=== PATIENT | female | born 1945 | race Caucasian/White ===

== ENCOUNTER 2016-11-28 09:03 | Observation (INO) | payer MEDICARE, OTHER ==
[~2016-11-28] VITALS: Ht 170.2 cm; Wt 81.6 kg
[~2016-11-28 09:03] MED LIST: ATENOLOL100 MG PO; CARDIZEM GENERI30 MG PO; CEFDINIR 300MG300 MG PO; DOCUSATE SODIU250 M1 PO; HYDROCODONE/ACE1 TA5 PO; KLOR-CON M2020 MEQ PO; LIPITOR40 M1 PO; PAROXETINE40 MG PO; PERMETHRIN5% TP; VITAMIN D3 COM1 EACH PO; XARELTO20 MG PO
[2016-11-28 09:06] VITALS: BP 128/73
--- NOTE | 2016-11-28 09:07 | Emergency Room Report ---
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 Clinical Suspician of Infection? Mental Status: Sepsis Risk: Have you (or family members/close friends) recently traveled outside the [place]? If Yes, where/when: Have you had exposure to infectious disease within the past month? TB? Other? Specify: Source patient, RN notes reviewed Exam Limitations no limitations Comment Brought to the ED by the [facility] from home with history that she may have had a stroke with altered speech that started about 7AM and on the way to the hospital, she regained her speech. She had no LOC and she reports that she has had a stroke in the past, has a history of Chronic AFib and is on xarelto. She is alert and oriented on arrival in the ED and has no arm drift. Her speech is a little slurred but she has drooping of the left side of her mouth and she reports it has been that way since her last CVA. She had no LOC and no incontinence of urine or stool and no seizure activity Cardiac Chest Pain Chest pain indicative of cardiac No ALLERGIES Coded Allergies: ofloxacin (UNKNOWN 11/28/16) Home Medications Active Scripts Diltiazem Hcl (Cardizem Generic 30MG Tab) 30 MG PO Q8 30 Days Prov: 01/03/14 Potassium Chloride (Klor-Con M20) 20 MEQ PO DAILY 30 Days Prov: 01/03/14 Atorvastatin Calcium (Lipitor 40MG) 40 MG PO QHS #30 TAB Ref 5 Prov: 08/28/16 Reported Medications Atenolol (Atenolol) 100 MG PO QHS #30 PAROXETINE HCL (Paroxetine) 40 MG PO QHS #30 Rivaroxaban (Xarelto) 20 MG PO DAILY History Medical History General CAD? No Angina: No PA: No Hypertension? Yes Hyperlipidemia? No CHF? Yes DVT? No PE? No COPD? Yes Asthma? No Anemia? No GERD? No Gastric ulcers? No GI Bleed? No Hernia? No Thyroid Problems? No Hypothyroidism? No CVA? Yes Seizures? No Diabetes? No Renal Insuffiency? No End Stage Renal Disease? No UTI? Yes Stones? No BPH? No GB Disease: No Nephritic Syndrome? No Asplenia? No Hepatitis? No Sickle Cell Disease? No Arthritis? No Migraines? No Cataracts? No Glaucoma? No MRSA? No HIV? No TB? No Anxiety? Yes Depression? Yes Cancer? No More? Yes Additional hx: AFIB,TIA, MILD COGNITIVE IMPAIRMENT Immunization Hx DT/Tetanus > 10 Years Ago Flu 2016-17FSN Pneumonia Received In Past Surgical Hx Previous Surgery?Y HYSTERECTOMY Breast Biopsy CHOLECYSTECTOMY ORIF L ANKLE Family History Family Hx Diabetes Yes CAD No Hypertension No Hyperlipidemia Yes Cancer No TB No Social History Smoking Hx Packs/day N/A Alcohol Alcohol: No Review of Systems All Other Systems Reviewed and Negative Constitutional see HPI Musculoskeletal see HPI Psychiatric/Neurological see HPI Physical Exam Vital Signs Vital Signs Date Time Temp Pulse Resp B/P Pulse O2 O2 Flow FiO2 Ox Delivery Rate 11/28 0906 98.3 78 18 128/73 96 General Appearance no apparent distress, mild drooping of left side of mouth Neck normal inspection, no bruits heard by me Respiratory Status No: respiratory distress. Lung Sounds bilateral: decreased breath sounds. Cardiovascular irregularly irregular Neurologic alert, oriented x 3, mild slurred speech and drooping of he left side of mouth Stroke Score/Tx Stroke Evaluation Initial symptoms indicative of possible stroke? Yes NIH STROKE SCORE NIH STROKE SCORE Response Value 1a.Level of Consciousness ALERT 0 1b.LOC Questions ANSWERS BOTH CORRECTLY 0 1c.LOC Commands OBEYS BOTH CORRECTLY 0 2 .Best Gaze NORMAL 0 3 .Visual NO VISUAL LOSS 0 4 .Facial Palsy PARTIAL 2 5a.Motor Arm Left NO DRIFT 0 5b.Motor Arm Right NO DRIFT 0 6a.Motor Leg Left NO DRIFT 0 6b.Motor Leg Right NO DRIFT 0 7 .Limb Ataxia ABSENT 0 8 .Sensory NORMAL 0 9 .Best Language NO APHASIA 0 10.Dysarthria MILD TO MOD DYSARTHRIA 1 ED.NIH11 NO NEGLECT 0 Total 3 Treatment Consideration t-PA ordered? No Medical Decision Making LABS/Meds/Orders Pt receiving controlled substance in ED? No Results/Orders Laboratory Tests 11/28/16 1028: Urine Color YELLOW, Urine Appearance CLEAR, Urine pH 6.5, Ur Specific [place] 1.015, Urine Protein NEGATIVE, Urine Ketones NEGATIVE, Urine Blood 2+ H, Urine Nitrate POSITIVE H, Urine Bilirubin NEGATIVE, Urine Urobilinogen 0.2, Ur Leukocyte Esterase 2+ H, Urine RBC 3-5, Urine WBC 20-50, Ur Squamous Epith Cells 3-5, Urine Bacteria 3+, Urine Glucose NEGATIVE 11/28/16924: Sodium 145, Potassium 4.1, Chloride 110 H, Carbon Dioxide 26, BUN 15, Creatinine 1.0, Estimated Creat Clear 43 L, Estimated GFR (MDRD) 54 L, Glucose 149 H, Calcium 8.2 L, Total Bilirubin 0.6, AST 22, ALT 22, Alkaline Phosphatase 170 H, Creatine Kinase 55, CK-MB (CK-2) Rel Index 1.8, CK and CKMB Interp 1.0, Troponin I 0.02, Total Protein 6.5, Albumin 3.0 L, Globulin 3.5 H, Albumin/Globulin Ratio 0.9 L, PT 15.9 H, INR 1.49 H, APTT 33.4, WBC 16.7 H, RBC 4.21, Hgb 14.3, Hct 43.2, MCV 102.5 H, RDW 16.4, Plt Count 248, MPV 10.7 H , Gran % 74.2, Gran # 12.4 H, Total Counted 100, Lymphocytes % 16.8, Monocytes % 6.7, Eosinophils % 1.7, Basophils % 0.5, Neutrophils 73, Lymphocytes (Manual) 16, Lymphocytes # 2.8, Monocytes (Manual) 8, Monocytes # 1.1 H, Eosinophils # 0.3, Eosinophils # (Manual) 3, Basophils # 0.1, Platelet Estimate NORMAL, Target Cells 2+, [place] Cells 1+, PUBS MCHC 33.0, MCH 33.9 H Current Medication Orders Sig/Krystina Start time Last Medication Dose Route Stop Time Status Admin Ceftriaxone Sodium 1 GM ONCE ONE 11/28 1115 AC Sodium Chloride 50 ML IV 11/28 1144 Sodium Chloride 10 ML PRN PRN 11/28 0915 AC IV 11/29 0913 Orders Procedure Date/time Status DIET-NOTHING BY MOUTH 11/28 L Active CULTURE, URINE 11/28 1028 Active LACTIC ACID 11/28 1002 Active DIFFERENTIAL-WBC 11/28 0925 Complete PROTIME/PARTIAL PROTIME 11/28 0922 Complete URINALYSIS/COMPLETE 11/28 0914 Complete ELECTROCARDIOGRAM REQUEST 11/[address] HEAD REQ 11/28 912 Complete IV SALINE LOCK 11/28 912 Active CULTURE, BLOOD 11/28 912 Active CBC WITH AUTO DIFF 11/28 912 Complete CARDIAC ENZYMES 11/28 912 Complete CHEM 12 PROFILE 11/28 912 Complete 12 LEAD EKG-ROSY (INITIAL) 11/28 UNK Active Departure Departure Time of Disposition 1116 Disposition Still a Patient Clinical Impression Primary Impression: TIA (transient ischemic attack) Qualifiers: Transient cerebral ischemia type: unspecified Qualified Code: G45.9 - Transient cerebral ischemic attack, unspecified Secondary Impressions: UTI (urinary tract infection) Qualifiers: Urinary tract infection type: acute cystitis Hematuria presence: without hematuria Qualified Code: N30.00 - Acute cystitis without hematuria Condition STABLE Referrals Donovan AMIN,Dagmar Savage (Family) Additional Instructions OBS to Dr. Man Discharge Counseling Counseled pt/family regarding diagnosis, test results, medications/RX ED Critical Care Critical Care No If Critical Care minutes are documented, the time involved in the performance of seperately reportable procedures was not counted toward critical care time documented. I directly delivered medical care to this critically ill and/or injured patient. Timely evaluation and treatment was necessary to address the significant organ system(s) dysfunction present in this patient. at 1117
[2016-11-28 09:41] LABS: HEMOGLOBIN 14.3 g/dL (12.2-16.2); LYMPH # 2.8 K/mm3 (0.7-4.5); LYMPH % 16.8 % (10-50.0)
[2016-11-28 10:12] LABS: NEUTROPHILS 73 % (42-76)
[2016-11-28 10:35] LABS: URINE BILIRUBIN - DIPSTICK NEGATIVE (NEG); URINE BLOOD 2+ (NEG)
--- NOTE | 2016-11-28 10:50 | RADIOLOGY REPORT PS360 ---
CT HEAD W/O CONTRAST HISTORY: Altered mental status, confusion, altered level of consciousness AMS ORDERING PHYSICIAN: Manda Díaz MD PATIENT AGE: 71 years COMPARISON: 08/27/2016 TECHNIQUE: Axial images obtained without contrast. Brain and bone windows reviewed. FINDINGS: No midline shift, mass effect, intracranial hemorrhage, hydrocephalus, or extra-axial fluid collection is evident. There is atrophy with hypoattenuation in the periventricular and subcortical region consistent with chronic ischemic change from microvascular disease. There is a 1 similar area of decreased attenuation within the medial aspect of the left basal ganglia consistent with a chronic lacunar infarction not readily apparent on 08/27/2016 but probably not acute. The calvarium has an unremarkable appearance. No mastoid effusion. The visualized paranasal sinuses are unremarkable. IMPRESSION: 1. No acute intracranial hemorrhage. 2. Chronic ischemic changes. 3. A new left lacunar infarction of the basal ganglia is noted compared to 08/27/2016. This however is not appear acute.. 4. There is no evidence of intracranial hemorrhage, focal mass, or acute territorial infarction. A negative CT does not exclude an acute CVA. A follow-up head CT or MRI is recommended if neurological symptoms persist
--- NOTE | 2016-11-28 10:50 | RADIOLOGY REPORT PS360 ---
CHEST-AP VIEW ONLY HISTORY: TIA ORDERING PHYSICIAN: Manda Díaz MD PATIENT AGE: 71 years COMPARISON: 08/25/2016 FINDINGS: The cardiomediastinal silhouette and pulmonary vascularity are within normal limits. The lungs are clear without infiltrates, suspicious nodules, or pleural effusions. No acute bony abnormalities. IMPRESSION: Negative chest, no acute finding
[2016-11-28 12:05] VITALS: BP 128/73
[2016-11-28] MEDS ORDERED: LEVOTHYROXIN0.025 M1 PO (12:12)
[2016-11-28 12:32] VITALS: BP 138/52
[2016-11-28 15:41] VITALS: BP 153/81
--- NOTE | 2016-11-28 16:32 | HISTORY AND PHYSICAL REPORT ---
History and Physical (FCA) Date of admission: 11/28/16 Chief complaint: Weakness History: History of Present Illness: Ms. Monzon is a 71yo white female who just recently suffered a CVA last year on 08/25/16. She She was discharged to [place] and was then transferred to [facility] for rehab. She had been discharged from there in October 2016. She was doing well until this am around 7. She was brought to the ED by the [facility] from home with history that she may have had a stroke with altered speech and weakness that started about 7AM. On the way to the hospital, she regained her speech and her weakness resolved. She has a history of Chronic AFib and is on xarelto. She was alert and oriented on arrival to the ED and had no arm drift. Her speech was a little slurred and she had drooping of the left side of her mouth but she reported it had been that way since her last CVA. She had no LOC and no incontinence of urine or stool. She had no seizure activity but she did manage to bite her tongue. Past Medical History: Medical History: CAD? No Angina: No NE: No Hypertension? Yes Hyperlipidemia? No CHF? Yes DVT? No PE? No COPD? Yes Asthma? No Anemia? No GERD? No Gastric ulcers? No GI Bleed? No Hernia? No Thyroid Problems? No Hypothyroidism? Yes CVA? Yes Seizures? No Diabetes? No Renal Insuffiency? No UTI? Yes Stones? No BPH? No GB Disease: No Nephritic Syndrome? No Asplenia? No Hepatitis? No Sickle Cell Disease? No Arthritis? No Migraines? No Cataracts? No Glaucoma? No MRSA? No HIV? No TB? No Anxiety? Yes Depression? Yes Cancer? No More? Yes Additional hx: 1. AFIB 2. TIA 3. MILD COGNITIVE IMPAIRMENT Surgical history: Previous Surgery?Y 1. HYSTERECTOMY 2. BREAST BX 3. CHOLECYSTECTOMY 4. ORIF L ANKLE Medications: Active Scripts Diltiazem Hcl (Cardizem Generic 30MG Tab) 30 MG PO Q8 30 Days Prov: 01/03/14 Potassium Chloride (Klor-Con M20) 20 MEQ PO DAILY 30 Days Prov: 01/03/14 Atorvastatin Calcium (Lipitor 40MG) 40 MG PO QHS #30 TAB Ref 5 Prov: 08/28/16 Reported Medications Atenolol (Atenolol) 100 MG PO QHS #30 PAROXETINE HCL (Paroxetine) 40 MG PO QHS #30 Rivaroxaban (Xarelto) 20 MG PO DAILY Levothyroxine Sodium (Levothyroxine 0.025MG) 0.025 MG PO DAILY #30 Allergies: Coded Allergies: ofloxacin (UNKNOWN 11/28/16) Family History: Family history: Postive for: DM. Social History: Smoking Hx Tobacco: No Smoker: Never Smoker Type: N/A Packs/day: N/A Are you exposed to second hand No Alcohol: Alcohol: No Hx of Drug Use: Drug Use? No Review of Systems: Constitutional Positive for: weak. No: fatigue, lethargy, malaise. ENT Positive for: nasal congestion. No: sore throat. Cardiovascular No: chest pain, edema, palpitations. Respiratory No: shortness of air, productive cough (sputum), wheezing. GI No: abdominal pain, diarrhea, nausea, vomitting. (female) No: frequency, hematuria. Neurological Positive for: weakness. No: dizziness, headache, seizure, syncope. Musculoskeletal No: extremity pain, joint pain, myalgias. Physical Exam: Vital signs: 1ST Vital Signs Result Date Time Pulse Ox 96 11/28 09 B/P 128/73 11/28 09 Temp 98.3 11/28 0906 Pulse 78 11/28 0906 Resp 18 11/28 0906 O2 Delivery ROOM AIR 11/28 1232 Exam: General appearance: alert, awake, no acute distress Eyes: EOM's w/normal ROM, PERRLA ENT: mucous membranes moist, nose normal, pharynx normal, tympanic membranes normal Neck: non-tender, full range of motion, supple Cardiovascular: regular rate & rhythm Respiratory: clear to auscultation ABD: non-distended, normal bowel sounds, no rebound, soft, no tenderness, no guarding Extremities: no peripheral edema Musculoskeletal: equal muscle strength, motor intact, sensation intact Skin: normal color Neuro: disease management nurse II-XII nml as tested, normal mood/affect, oriented, speech clear Lab data: Labs: Laboratory Tests 11/28/16 1028: Urine Color YELLOW, Urine Appearance CLEAR, Urine pH 6.5, Ur Specific [place] 1.015, Urine Protein NEGATIVE, Urine Ketones NEGATIVE, Urine Blood 2+ H, Urine Nitrate POSITIVE H, Urine Bilirubin NEGATIVE, Urine Urobilinogen 0.2, Ur Leukocyte Esterase 2+ H, Urine RBC 3-5, Urine WBC 20-50, Ur Squamous Epith Cells 3-5, Urine Bacteria 3+, Urine Glucose NEGATIVE 11/28/16 0925: Sodium 145, Potassium 4.1, Chloride 110 H, Carbon Dioxide 26, BUN 15, Creatinine 1.0, Estimated Creat Clear 43 L, Estimated GFR (MDRD) 54 L, Glucose 149 H, Calcium 8.2 L, Total Bilirubin 0.6, AST 22, ALT 22, Alkaline Phosphatase 170 H, Creatine Kinase 55, CK-MB (CK-2) Rel Index 1.8, CK and CKMB Interp 1.0, Troponin I 0.02, Total Protein 6.5, Albumin 3.0 L, Globulin 3.5 H, Albumin/Globulin Ratio 0.9 L, PT 15.9 H, INR 1.49 H, APTT 33.4, WBC 16.7 H, RBC 4.21, Hgb 14.3, Hct 43.2, MCV 102.5 H, RDW 16.4, Plt Count 248, MPV 10.7 H , Gran % 74.2, Gran # 12.4 H, Total Counted 100, Lymphocytes % 16.8, Monocytes % 6.7, Eosinophils % 1.7, Basophils % 0.5, Neutrophils 73, Lymphocytes (Manual) 16, Lymphocytes # 2.8, Monocytes (Manual) 8, Monocytes # 1.1 H, Eosinophils # 0.3, Eosinophils # (Manual) 3, Basophils # 0.1, Platelet Estimate NORMAL, Target Cells 2+, [place] Cells 1+, PUBS MCHC 33.0, MCH 33.9 H Microbiology 11/28 1028 URINE CC: Urine Culture - RECD 11/28 912 BLOOD: Anaerobic Blood Culture - CAN Cancelled: @[facility] TALKED TO ER AND THEY STATED LABS WERE NOT NEEDED 11/28 912 BLOOD: Aerobic Blood Culture - CAN Cancelled: @[facility] TALKED TO ER AND THEY STATED LABS WERE NOT NEEDED 11/28 912 BLOOD: Anaerobic Blood Culture - CAN Cancelled: @[facility] TALKED TO ER AND THEY STATED LABS WERE NOT NEEDED 11/28 912 BLOOD: Aerobic Blood Culture - CAN Cancelled: @[facility] TALKED TO ER AND THEY STATED LABS WERE NOT NEEDED Radiology results: Results: CT Head IMPRESSION: 1. No acute intracranial hemorrhage. 2. Chronic ischemic changes. 3. A new left lacunar infarction of the basal ganglia is noted compared to 08/27. This however does not appear acute.. 4. There is no evidence of intracranial hemorrhage, focal mass, or acute territorial infarction. A negative CT does not exclude an acute CVA. A follow-up head CT or MRI is recommended if neurological symptoms persist CXR - nothing acute Diagnosis(es): 1. UTI (urinary tract infection) Status: Acute 2. TIA (transient ischemic attack) Status: Acute 3. Hypertension Status: Chronic 4. Depression Status: Chronic Plan: Will keep overnight for monitoring of her neurologic status. She has been restarted on her home meds and rocephin for her UTI. Awaiting urine cx. (Luisa Borges) Date of admission: 11/28/16 Diagnosis(es): 1. UTI (urinary tract infection) Status: Acute 2. TIA (transient ischemic attack) Status: Acute 3. Hypertension Status: Chronic 4. Depression Status: Chronic Plan: Pt seen and examined. SHe is comfortable and back to her baseline neurologic status. Concur with above assessment and plan. (Dagmar Man MD) at 1631 at [phone]
[2016-11-28 19:29] VITALS: BP 128/62
[2016-11-28 20:05] VITALS: BP 128/62
[2016-11-29 03:40] VITALS: BP 130/64
[2016-11-29 07:54] LABS: HEMOGLOBIN 12.9 g/dL (12.2-16.2)
[2016-11-29 07:55] LABS: LYMPH # 5.1 K/mm3 (0.7-4.5)
[2016-11-29 08:00] VITALS: BP 113/82
[2016-11-29] MEDS ORDERED: CEFUROXIME AXE500 MG PO (08:21)
--- NOTE | 2016-11-29 08:25 | ACUTE CARE PROGRESS NOTE (QUA) ---
Progress Notes Subjective Date 11/29/16 Time 0822 Note Up several times during the night to urinate o/w feels OK. No further neurologic symptoms Objective Findings Laboratory Tests 11/29/16 0630: WBC 13.2 H, RBC 4.00 L, Hgb 12.9, Hct 38.3, MCV 95.7, RDW 15.4, Plt Count 237, Gran % 51.6, Gran # 6.8, Lymphocytes % 39.0, Monocytes % 9.4 H, Lymphocytes # 5.1 H, Monocytes # 1.2 H, PUBS MCHC 33.7, MCH 32.3 H 11/28/16 1028: Urine Color YELLOW, Urine Appearance CLEAR, Urine pH 6.5, Ur Specific [place] 1.015, Urine Protein NEGATIVE, Urine Ketones NEGATIVE, Urine Blood 2+ H, Urine Nitrate POSITIVE H, Urine Bilirubin NEGATIVE, Urine Urobilinogen 0.2, Ur Leukocyte Esterase 2+ H, Urine RBC 3-5, Urine WBC 20-50, Ur Squamous Epith Cells 3-5, Urine Bacteria 3+, Urine Glucose NEGATIVE 11/28/16 0925: Sodium 145, Potassium 4.1, Chloride 110 H, Carbon Dioxide 26, BUN 15, Creatinine 1.0, Estimated Creat Clear 43 L, Estimated GFR (MDRD) 54 L, Glucose 149 H, Calcium 8.2 L, Total Bilirubin 0.6, AST 22, ALT 22, Alkaline Phosphatase 170 H, Creatine Kinase 55, CK-MB (CK-2) Rel Index 1.8, CK and CKMB Interp 1.0, Troponin I 0.02, Total Protein 6.5, Albumin 3.0 L, Globulin 3.5 H, Albumin/Globulin Ratio 0.9 L, PT 15.9 H, INR 1.49 H, APTT 33.4, WBC 16.7 H, RBC 4.21, Hgb 14.3, Hct 43.2, MCV 102.5 H, RDW 16.4, Plt Count 248, MPV 10.7 H , Gran % 74.2, Gran # 12.4 H, Total Counted 100, Lymphocytes % 16.8, Monocytes % 6.7, Eosinophils % 1.7, Basophils % 0.5, Neutrophils 73, Lymphocytes (Manual) 16, Lymphocytes # 2.8, Monocytes (Manual) 8, Monocytes # 1.1 H, Eosinophils # 0.3, Eosinophils # (Manual) 3, Basophils # 0.1, Platelet Estimate NORMAL, Target Cells 2+, Dayday Cells 1+, PUBS MCHC 33.0, MCH 33.9 H Microbiology 11/28 1028 URINE CC: Urine Culture - RES 11/28 912 BLOOD: Anaerobic Blood Culture - CAN Cancelled: @[facility] TALKED TO ER AND THEY STATED LABS WERE NOT NEEDED 11/28 912 BLOOD: Aerobic Blood Culture - CAN Cancelled: @[facility] TALKED TO ER AND THEY STATED LABS WERE NOT NEEDED 11/28 912 BLOOD: Anaerobic Blood Culture - CAN Cancelled: @[facility] TALKED TO ER AND THEY STATED LABS WERE NOT NEEDED 11/28 912 BLOOD: Aerobic Blood Culture - CAN Cancelled: @[facility] TALKED TO ER AND THEY STATED LABS WERE NOT NEEDED Last VS-Temp:97.7 B/P:113/82 Pulse:74 Resp:20 SaO2:98 ROOM AIR Last weight lbs:180 oz:0 K.648 Method:Bed Scales Exam General appearance: alert, no acute distress ENT: voice is hoarse Cardiovascular: irregularly irregular Respiratory: clear to auscultation ABD: non-distended, normal bowel sounds, soft, no tenderness Neuro: speech dysarthric (at baseline) Reviewed: medications, vital signs, nursing notes Assessment/Plan Problem List 1. UTI (urinary tract infection) Status: Acute 2. TIA (transient ischemic attack) Status: Acute 3. Hypertension Status: Chronic 4. Depression Status: Chronic Patient condition Improving Plan: Discharge home on antibiotics. This inpt stay is expected to cross 2 MNs from start of care No at 0825
[2016-11-29 11:50] VITALS: BP 113/82
== END 2016-11-29 11:15 | disposition home or self-care (01) ==
LOC: ER 09:03 → 2ND 11:19 → ER 11:19 → 2ND 11:19
PROVIDERS: General Practice
DX: N39.0 Urinary tract infection, site not specified (principal); G45.9 Transient cerebral ischemic attack, unspecified; I69.392 Facial weakness following cerebral infarction; I10 Essential (primary) hypertension; I48.91 Unspecified atrial fibrillation; Z79.01 Long term (current) use of anticoagulants
CPT/HCPCS: G0378

== ENCOUNTER 2017-08-26 15:25 | Emergency (ER) | payer MEDICARE, OTHER ==
[~2017-08-26] VITALS: Ht 170.2 cm; Wt 72.6 kg
[~2017-08-26 15:25] MED LIST changes: +AMOXICILLIN 50500 MG PO; +CEFUROXIME AXE500 MG PO; +KEPPRA250 MG PO; +KEPPRA500 MG PO; +LAMICTAL (BLUE)25 MG PO; +LEVOTHYROXIN0.025 M1 PO
--- OUTSIDE RECORDS SUMMARY | 2017-08-26 15:45 | External Medical Summary Rpt | Continuity of Care Document ---
Author Author Organization Address Unknown Phone Unavailable Care Team Providers Care Manager Wound Name Role Phone , Unavailable Unavailable EMS Current Medications Section EMS Allergies and Adverse Reactions EMS Past Medical History Medications Administered Section EMS Procedures Performed EMS Vital Signs EMS Patient Care Report Narrative Dispatched to above address for a patient who's nurse advised that her pulse was 40. Upon arrival found patient putting on jacket and walking out to kitchen with assistance of her walker. Family friend on scene and daughter was on her way. Friend advised that she got there this evening to fix them dinner and saw a note from the home health nurse that was there at 1300 this date to withhold her diltiazem for tonight. The friend called the daughter who called the doctor who told her that the nurse called him and told him that her pulse was 40 earlier today. Patient is alert and oriented, skin color normal w/d. Patient has no c/o anything at all. She states that she feels fine and has all day and doesn't want to go to the hospital. Vitals checked. Daughter on scene at this time and she was OK with patient not going if her vitals were OK and she was feeling fine. Patient signed refusal with daughter as witness. Returned to service.
--- OUTSIDE RECORDS SUMMARY | 2017-08-26 15:45 | External Medical Summary Rpt | Continuity of Care Document ---
Author Author Organization Address Unknown Phone Unavailable Care Team Providers Care Waterfront Director Name Role Phone , Unavailable Unavailable EMS [...]
--- OUTSIDE RECORDS SUMMARY | 2017-08-26 15:45 | External Medical Summary Rpt | Continuity of Care Document ---
Author Author Organization Address Unknown Phone Unavailable Care Team Providers Care Trip Motor Operator Name Role Phone , Unavailable Unavailable EMS [...]
--- OUTSIDE RECORDS SUMMARY | 2017-08-26 15:45 | External Medical Summary Rpt | Continuity of Care Document ---
Author Author Organization Address Unknown Phone Unavailable Care Team Providers Care Website Project Manager Name Role Phone , Unavailable Unavailable EMS [...]
--- OUTSIDE RECORDS SUMMARY | 2017-08-26 15:45 | External Medical Summary Rpt | Continuity of Care Document ---
Author Author Organization Address Unknown Phone Unavailable Care Team Providers Care Engineer Remote Control Diesel Name Role Phone , Unavailable Unavailable EMS [...]
--- OUTSIDE RECORDS SUMMARY | 2017-08-26 15:45 | External Medical Summary Rpt | Continuity of Care Document ---
Author Author Organization Address Unknown Phone Unavailable Care Team Providers Care Artistic Associate Name Role Phone , Unavailable Unavailable EMS [...]
--- OUTSIDE RECORDS SUMMARY | 2017-08-26 15:47 | External Medical Summary Rpt | CCD ---
Author Author , SERGIO HILL Address Unknown Phone [email or web address] Care Team Providers Care Outsole Skiver Name Role Phone BRANDON HIRSCH MD, Unavailable Unavailable BRANDON HIRSCH MD Purpose Continuity of Care Document - 12-22-2013 through 2016 Problems Code Diagnosis DOS Provider Status 824.8 824.8 FX 12-22-2013 Camron ANKLE [facility] E849.0 E849.0 12-22-2013 Camron ACCIDENT IN [facility] E885.9 E885.9 FALL 12-22-2013 Camron FROM [facility] SLIPPING, Hospital TRIPPING, OR STUMBLING NEC G45.9 TRANSIENT CEREBRAL ISCHEMIC ATTACK, UNSPECIFIED I48.91 UNSPECIFIED ATRIAL FIBRILLATIO N I50.9 HEART FAILURE, UNSPECIFIED N39.0 URINARY TRACT INFECTION, SITE NOT SPECIFIED R53.1 WEAKNESS R56.9 UNSPECIFIED CONVULSIONS S82.209A UNSP FRACTURE OF SHAFT OF UNSP TIBIA, INIT FOR CLOS FX S82.409A UNSP FRACTURE OF SHAFT OF UNSP FIBULA, INIT FOR CLOS FX Z12.31 ENCNTR SCREEN MAMMOGRAM FOR MALIGNANT NEOPLASM OF BREAST Allergies, Adverse Reactions, Alerts Type Allergy to substance Adverse Reaction to Substance Substance Reaction Severity NO KNOWN ALLERGIES Unknown Unknown Medications Na ND Rx Da Fi Fi Am Da Di Ph RX Ph St me C No te ll ll ou ys ag ar # ys at rm s nt no ma ic us Or Da si cy ia de te s n re d AP 00 02 0 No AP 40 -2 /H 60 0- Lo YD 36 20 ng RO 56 14 er CO 2 DO Ac NE ti ve 32 5 MG -5 MG Vital Signs 12-22-2013 13:42 Name Value Interpretat Reference Comment ion Range BP 69 mm[Hg] Diastolic BP Systolic 121 mm[Hg] Heart 71 /min Rate/Pulse O2% 97 % Respiratory 20 /min Rate 12-22-2013 12:21 Name Value Interpretat Reference Comment ion Range BP 84 mm[Hg] Diastolic BP Systolic 139 mm[Hg] Heart 76 /min Rate/Pulse O2% 97 % Respiratory 20 /min Rate Procedures Procedure DOS Code Location Performer Comment APPLICATI 93.54 BRANDON ON OF JOYCELYN CASTRO MD Encounters Encounter Start End Date Code Location Performer Type Date Emergency TIFFAYN HIRSCH (ER) 4 12:00 4 13:42 [facility] BRANDON
--- OUTSIDE RECORDS SUMMARY | 2017-08-26 15:47 | External Medical Summary Rpt | CCD ---
Author Author , SERGIO HILL Address Unknown Phone [email or web address] Providers Care Bird Keeper Name Role Phone BRANDON HIRSCH MD, Unavailable Unavailable BRANDON HIRSCH MD Purpose Continuity of Care Document - 12-22-2013 through 2016 Problems Code Diagnosis DOS Provider Status 824.8 824.8 FX 12-22-2013 Camron ANKLE [facility] E849.0 E849.0 12-22-2013 Camron ACCIDENT IN [facility] E885.9 E885.9 FALL 12-22-2013 Camron FROM [facility] SLIPPING, Hospital TRIPPING, OR STUMBLING NEC G45.9 [...] Date Code Location Performer Type Date Emergency TIFFANY HIRSCH (ER) 4 12:00 4 13:42 [facility] BRANDON
--- OUTSIDE RECORDS SUMMARY | 2017-08-26 15:48 | External Medical Summary Rpt | CCD ---
Demographics Preferred Language Belarusian Marital Status Unknown Anglican Affiliation Unknown Race Unknown Ethnic Group Unknown Author Author , SERGIO HILL Address Unknown Phone Immunization Unable to retrieve immunization data due to connection failure with Immunization Registry. Please try again later.
--- OUTSIDE RECORDS SUMMARY | 2017-08-26 15:48 | External Medical Summary Rpt | CCD ---
Demographics Preferred Language Bengali Marital Status Unknown Sabianism Affiliation Unknown Race Unknown Ethnic Group Unknown Author Author , SERGIO HILL Address Unknown Phone Immunization Unable to retrieve immunization data due to connection failure with Immunization Registry. Please try again later.
[2017-08-26 16:00] LABS: LYMPH # 4.8 K/mm3 (0.7-4.5); LYMPH % 37.7 % (10-50.0)
[2017-08-26 16:06] LABS: HEMOGLOBIN 14.8 g/dL (12.2-16.2)
--- NOTE | 2017-08-26 16:13 | Emergency Room Report ---
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 N Clinical Suspician of Infection? N Mental Status: 1 - Regular (Normal Baseline) Sepsis Risk:Low Sepsis RisK Have you (or family members/close friends) recently traveled outside the [place]? N If Yes, where/when: Have you had exposure to infectious disease within the past month? TB? Other? Specify: Patient with intermittently low HR over the past few weeks, hasn't wanted to come to the ER. Was in speech therapy at home today and low HR noted and EMS called. Patient has had a 36 pound unintentional weight loss in the past few months. She is on Metoprolol. 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 ALLERGIES Coded Allergies: ofloxacin (05/15/17) Home Medications Active Scripts Potassium Chloride (Klor-Con M20) 20 MEQ PO DAILY 30 Days Prov: 01/03/14 Atorvastatin Calcium (Lipitor 40MG) 40 MG PO QHS #30 TAB Ref 5 Prov: 08/28/16 Reported Medications Atenolol (Atenolol) 100 MG PO QHS #30 Rivaroxaban (Xarelto) 20 MG PO DAILY Levothyroxine Sodium (Levothyroxine 0.025MG) 0.025 MG PO DAILY #30 Lamotrigine (Lamictal (Blue)) 25 MG PO DAILY History Medical History General CAD? No Angina: No ID: No Hypertension? Yes Hyperlipidemia? No CHF? Yes DVT? No PE? No COPD? Yes Asthma? No Anemia? No GERD? No Gastric ulcers? No GI Bleed? No Hernia? No Thyroid Problems? No Hypothyroidism? Yes CVA? Yes Seizures? No Diabetes? No Renal Insuffiency? No End Stage Renal Disease? No UTI? Yes Stones? No BPH? No GB Disease: No Nephritic Syndrome? No Asplenia? No Hepatitis? No Sickle Cell Disease? No Arthritis? No Migraines? No Cataracts? No Glaucoma? No MRSA? No HIV? No TB? No Anxiety? Yes Depression? Yes Cancer? No More? Yes Additional hx: 1. AFIB 2. TIA 3. MILD COGNITIVE IMPAIRMENT Immunization Hx DT/Tetanus > 10 Years Ago Flu 2016-17FSN Pneumonia Received In Past Surgical Hx Previous Surgery?Y HYSTERECTOMY Breast Biopsy CHOLECYSTECTOMY ORIF L ANKLE Family History Family Hx Diabetes Yes CAD No Hypertension No Hyperlipidemia Yes Cancer No TB No Social History Smoking Hx Smoker: Never Smoker Tobacco: No Packs/day N/A Alcohol Alcohol: No Review of Systems All Other Systems Reviewed and Negative Cardiovascular see HPI (hx Afib; takes Metoprolol) Psychiatric/Neurological pre-existing deficit Physical Exam Vital Signs Vital Signs Date Time Temp Pulse Resp B/P Pulse O2 O2 Flow FiO2 Ox Delivery Rate 08/26 1529 98.4 46 16 115/74 95 General Appearance normal appearance, WD/WN, no apparent distress Eye Exam - bilateral eye normal exam, bilateral eye PERRL, bilateral eye EOMI Neck normal inspection, non-tender, supple, full range of motion Respiratory Status Yes: trachea midline, chest symmetrical, non tender chest. No: respiratory distress, tender on palpation, use of accessory muscles, pain on inspiration, pain on expiration, productive cough, non productive cough. Lung Sounds bilateral: normal breath sounds, lungs clear. Cardiovascular no peripheral edema, no gallop, no JVD, no murmur, no rub, irregularly irregular, slow Afib on monitor; 38-52 Peripheral Pulses Pulses normal Yes (irr irr but full) Gastrointestinal normal bowel sounds, normal exam, non tender, soft, no organomegaly, no pulsatile mass, no guarding, no rebound Extremities no gross edema, no calf tenderness Neurologic alert, no motor/sensory deficits (baseline speech issues), oriented x 3, speech somewhat slow but she is alert, cooperative, and makes sense; obvious R hemiparesis, primarily RUE. No tremor. Glascow Coma Scale Glascow Coma Scale Response Value EYE response: 4 Spontaneously 4 MOTOR response: 6 OBEYS 6 VERBAL response: 5 Oriented & Converses 5 Total 15 Skin intact, normal color, warm/dry Medical Decision Making LABS/Meds/Orders Pt receiving controlled substance in ED? No Results/Orders Laboratory Tests 10/25/17 1550: Sodium 143, Potassium 3.9, Chloride 106, Carbon Dioxide 30, BUN 10, Creatinine 0.8, Estimated Creat Clear 71, Estimated GFR (MDRD) 70, Glucose 129 H, Calcium 8.5, Total Bilirubin 0.5, AST 24, ALT 19, Alkaline Phosphatase 150 H, Creatine Kinase 66, CK-MB (CK-2) Rel Index 2.4, CK and CKMB Interp 1.6, Troponin I < 0.02 , Total Protein 7.3, Albumin 3.5, Globulin 3.8 H, Albumin/Globulin Ratio 0.9 L , Lipase 69 L, PT 12.0 H, INR 1.11 H, APTT 32.6, WBC 12.6 H, RBC 4.50, Hgb 14.8, Hct 46.7, MCV 103.8 H, RDW 14.7, Plt Count 217, MPV 9.9, Gran % 50.1, Gran # 6.3, Lymphocytes % 37.7, Monocytes % 6.8, Eosinophils % 4.7, Basophils % 0.8, Lymphocytes # 4.8 H, Monocytes # 0.9, Eosinophils # 0.6 H, Basophils # 0.1, PUBS MCHC 31.9, MCH 33.1 H Current Medication Orders Sig/Krystina Start time Last Medication Dose Route Stop Time Status Admin Iopamidol 100 ML ONCE ONE 08/26 1645 UNV 08/26 IV 08/26 164 1646 Sodium Chloride 20 ML ONCE ONE 08/26 1645 UNV 08/26 IV 08/26 1646 1646 Sodium Chloride 20 ML ONCE ONE 08/26 1645 UNV 08/26 IV 08/26 1646 1646 Sodium Chloride 10 ML PRN PRN 08/26 1645 UNV 08/26 IV 08/26 1815 1646 Sodium Chloride 10 ML PRN PRN 08/26 1545 AC IV 08/27 1536 Orders Procedure Date/time Status DIET-NOTHING BY MOUTH 08/26 D Active ELECTROCARDIOGRAM REQUEST 08/[address] CHEST SCAN REQ 08/[address] ABD/PELVIS REQ 08/26 153 Complete IV SALINE LOCK 08/26 1538 Active URINALYSIS/COMPLETE 08/26 1538 Active PARTIAL THROMBOPLASTIN TIME 08/26 153 Complete PROTHROMBIN TIME 08/26 153 Complete LIPASE 08/26 153 Complete CBC WITH AUTO DIFF 08/26 153 Complete CARDIAC ENZYMES 08/26 1538 Complete CHEM 12 PROFILE 08/26 153 Complete 12 LEAD EKG-BESSON (INITIAL) 08/26 UNK Active CM/EKG CM/EKG EKG rate, no evid. of ischemic chgs, normal QRS (slow Afib 30-50's ) XRAY/CT/US XRAY/CT/US CT abdomen, pelvis, chest Time results known: 1729 CT Results normal/NAD, neg AAA noted Consult MD Physician Consult Consult/PCP Dr. Tolliver master fire control technician for Dr. Man cut atenolol into half dose f/u Dr. Vigil Time Called 1732 Reason Pt. Condition Progress ED Progress Notes Date 08/26/17 Time 1736 Comment Feels fine, does not want admission Departure Departure Time of Disposition 1736 Disposition DC Home or Self Care(routine) Clinical Impression Primary Impression: Slow heart rate Secondary Impressions: Abdominal pain Qualifiers: Abdominal location: generalized Qualified Code: R10.84 - Generalized abdominal pain Ruled Out Impressions: AAA (abdominal aortic aneurysm) Condition STABLE Referrals Dagmar Man MD (Family) Patient Instructions DI for Abdominal Pain-Adult Additional Instructions Heart rate slow: Dr. Tolliver states cut Atenolol in half, follow up with Dr. Man in two to seven days for recheck. Discharge Counseling Counseled pt/family regarding diagnosis, test results, medications/RX, home care, follow up needs ED Critical Care Critical Care No at 1737
[2017-08-26 16:23] LABS: BUN 10 mg/dL (7-18)
[2017-08-26 16:26] LABS: GFR (ESTIMATED) 70 ML/MIN (59-)
--- NOTE | 2017-08-26 17:07 | RADIOLOGY REPORT PS360 ---
CTA-CHEST HISTORY: Chest pain, abdominal pain, EVALUATE AORTA, ABD PAIN ON XARELTO ORDERING PHYSICIAN: Cher Curtis MD PATIENT AGE: 72 years TECHNIQUE: Helical acquisition obtained following the bolus administration of 100 mL of Isovue 370 followed by a saline bolus. Axial, sagittal, and coronal reformatted images are generated and reviewed. COMPARISON: 12/31/2013 FINDINGS: There are 4 prominent coronary artery calcifications. No evidence of aortic aneurysm or dissection of the thoracic aorta. No obvious central pulmonary embolus although the study is not tailored for the pulmonary arteries. Mild cardiomegaly. No evidence of pericardial effusion. Mildly prominent mediastinal lymph nodes are present in the precarinal region and subcarinal area similar to the previous exam. Small nodes are present in the right hilum as well not significantly changed. No lobar consolidation or collapse. No suspicious pulmonary nodules. Calcified granuloma is present in the left lower lobe. There is some mild bronchial thickening and mild biapical scarring. There is trace right pleural effusion. No acute bony anomalies. IMPRESSION: 1. No evidence of aortic aneurysm or dissection. 2. Trace right pleural effusion with mild coarsening of the bronchovascular markings and bronchial thickening which may be seen with COPD/bronchitis. 3. Old granulomatous disease. 4. Coronary artery disease. 5. Mild prominence of mediastinal lymph nodes and right hilar lymph nodes stable
--- NOTE | 2017-08-26 17:20 | RADIOLOGY REPORT PS360 ---
CTA-ABD CLINICAL INDICATION: EVALUATE AORTA, ABD PAIN ON XARELTO ORDERING PHYSICIAN: Cher Curtis MD PATIENT AGE: 72 years TECHNIQUE: Axial images obtained following intravenous ministration 100 mL's of Isovue-370 performed in conjunction with the chest CT. Sagittal and coronal reformatted images are generated and reviewed as well COMPARISON: None FINDINGS: No evidence of abdominal aortic aneurysm or dissection. No acute retroperitoneal hemorrhage. There are mild atheromatous changes of the abdominal aorta and its branches. 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 There is mild stenosis of the ostium of the superior mesenteric artery. The infra mesenteric artery is patent. Plaque is present at the ostium of the renal arteries with at least 50% stenosis of the proximal aspect of the left renal artery suspected. These are merely estimations as the study was not tailored to the renal arteries. No intestinal obstruction or free air. There is generalized motion artifact. No renal mass or hydronephrosis. The liver is unremarkable. Dense calcification is present in the region of the splenic bed and could be due to prior trauma or autosplenectomy. Scattered small lymph nodes are present in the retroperitoneum measuring up to 1.4 x 0.9 cm and the left para-aortic region. Small amount fluid is present within the subcutaneous tissues posterior to the lumbar spine IMPRESSION: 1. No evidence of aortic aneurysm or dissection. 2. 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 3. Mild retroperitoneal adenopathy. 4. Nonvisualization of the spleen which could be due to prior surgery or autosplenectomy as there is calcified plaque like area in the region of the splenic bed
[2017-08-26 17:49] VITALS: BP 110/70
== END 2017-08-26 17:50 | disposition home or self-care (01) ==
LOC: ER 15:25
PROVIDERS: Emergency Medicine
DX: R10.84 Generalized abdominal pain (principal); I71.4 Abdominal aortic aneurysm, without rupture; I10 Essential (primary) hypertension; E78.5 Hyperlipidemia, unspecified